=== PATIENT | female | born 1950 | race Caucasian/White ===

== ENCOUNTER 2022-08-27 07:18 | Day surgery (SDC) | payer MEDICARE, BC, SELFPAY ==
[2022-08-27] MEDS: TETRACAINE 0.5% OPHTH 1 DROP EYE-RIGHT ×2 (07:30→07:35)
[2022-08-27] MEDS: KETOROLAC OPHTH 0.5% 1 DROP EYE-RIGHT ×2 (07:30→07:35)
[2022-08-27 07:44] VITALS: BMI 37.9
[2022-08-27] MEDS: SODIUM CHLORIDE 0.9 % (FLUSH) 10 ML SYRINGE IVF (07:45)
[2022-08-27 07:48] VITALS: BP 134/78; PULSE 70; RESP 16; TEMP 36.9; O2SAT 95
--- NOTE | 2022-08-27 07:53 | SUR.PREOP ---
HOME COVID NEGATIVE
[2022-08-27] MEDS: TETRACAINE 0.5% OPHTH 2 DROP EYE-RIGHT (08:53)
[2022-08-27] MEDS: BALANCED SALT IRRIG SOLN 15 ML EYE-RIGHT (08:59)
--- NOTE | 2022-08-27 09:25 | W.ANESCHARGE ---
Anesthesia Charges Start Date/Time Anesthesia Start Date: 08/27/22 Anesthesia Start Time: 08:50 Stop Date/Time Anesthesia Stop Date: 08/27/22 Anesthesia Stop Time: 09:25 Summary Extremes of Age - Over 70 or under 1: MDA
--- NOTE | 2022-08-27 09:26 | W.ANESCHARGE ---
Anesthesia Charges Start Date/Time Anesthesia Start Date: 08/27/22 Anesthesia Start Time: 08:50 Stop Date/Time Anesthesia Stop Date: 08/27/22 Anesthesia Stop Time: 09:25
[2022-08-27 09:29] VITALS: BP 134/73; PULSE 74; RESP 16; TEMP 37.1; O2SAT 96
--- NOTE | 2022-08-27 09:29 | P.OPTPRC_ITS ---
Procedure Note Date of procedure: 08/27/22 Will [facility] bill your pro fee for this procedure?: Yes Procedure Description: SURGEON: Aide Sales MD PREOPERATIVE DIAGNOSIS: Nuclear sclerotic cataract, right eye. POSTOPERATIVE DIAGNOSIS: Nuclear sclerotic cataract, right eye. NAME OF OPERATION: Phacoemulsification of cataract with posterior chamber intraocular lens implantation in the right eye. ANESTHESIA: Topical. ESTIMATED BLOOD LOSS: Less than 2 cc. COMPLICATIONS: None. PATHOLOGY SPECIMEN: None. INDICATIONS: See consult note for details. The risks, benefits and alternatives of the procedure were explained to the patient, who elected to proceed and s igned informed consent to do so. PROCEDURE: The patient was brought to the pre-holding area where the right eye was identified as the operative eye. I placed my initials above this eye. The patient received eye drops consisting of 0.5% tetracaine, 1% tropicamide, 10% phenylephrine, and 0.5% ketorolac. The patient was then brought to the operating room where the right eye was again identified as the operative eye. The eye was prepped with Betadine and draped in the usual sterile ophthalmic fashion. A #15 super-sharp blade was used to create a paracentesis site. 1% non-preserved intracameral lidocaine was injected into the anterior chamber. Endocoat was injected into the anterior chamber. A 2.4 mm keratome was used to create a three-plane self-sealing incision 1 mm anterior to the temporal limbus. A cystotome was used to create an anterior capsular leaflet. The Utrata forceps were used to extend this to form a continuous curvilinear capsulorrhexis. Hydrodissection was performed. The cataract was removed with phacoemulsification using the ecwztu-yoo-ofndlnl technique. The irrigation and aspiration tip was used to remove the remaining cortex. Healon was injected into the capsular bag. An NATAN ZCB00 intraocular lens of 19.0 diopters was injected into the capsular bag. The irrigation and aspiration tip was used to remove the remaining viscoelastic. Balanced salt solution on a cannula was used to hydrate the wound, and the wound was found to be watertight. The pupil was noted to be round. DISPOSITION: The patient was taken to the recovery room and discharged to home in stable condition. The patient was instructed to call me or go to the emergency department with any sudden change, including dramatic loss of vision, severe pain in the eye or eyebrow region, nausea, or vomiting. The patient will follow up in the clinic tomorrow morning.
== END 2022-08-27 09:43 | disposition home or self-care (01) ==
LOC: OR 07:21
PROVIDERS: PCP Family Medicine; Visit Provider Ophthalmology
PROC: (CPT 66984; principal; 2022-08-27 07:30)
DX: H25.11 Age-related nuclear cataract, right eye (principal)
CPT/HCPCS: 66984; 00142; 99100; A9270; J2250; J3010; V2632

== ENCOUNTER 2022-09-10 07:29 | Day surgery (SDC) | payer MEDICARE, BC, SELFPAY ==
[2022-09-10] MEDS: TETRACAINE 0.5% OPHTH 1 DROP EYE-LEFT ×2 (07:42→07:46)
[2022-09-10] MEDS: KETOROLAC OPHTH 0.5% 1 DROP EYE-LEFT ×2 (07:45→07:49)
[2022-09-10] MEDS: SODIUM CHLORIDE 0.9 % (FLUSH) 10 ML SYRINGE IVF (07:45)
[2022-09-10 07:52] VITALS: BP 146/70; PULSE 76; RESP 18; TEMP 36.6; O2SAT 94; BMI 37.9
--- NOTE | 2022-09-10 07:57 | SUR.PREOP ---
The eye drops brought by the patient (Ketorolac and Prednisolone) are examined and I have determined they are labeled by the patient's pharmacy for this patient as prescribed by the surgeon. The bottles are intact, recently obtained and appear to be correct.
--- NOTE | 2022-09-10 08:08 | W.ANESCHARGE ---
Anesthesia Charges Start Date/Time Anesthesia Start Date: 09/10/22 Anesthesia Start Time: 07:49 Stop Date/Time Anesthesia Stop Date: 09/10/22 Anesthesia Stop Time: 08:23 Summary Extremes of Age - Over 70 or under 1: MDA
[2022-09-10] MEDS: TETRACAINE 0.5% OPHTH 2 DROP EYE-LEFT (08:34)
[2022-09-10] MEDS: BALANCED SALT IRRIG SOLN 15 ML EYE-LEFT (08:39)
[2022-09-10 09:00] VITALS: BP 159/88; PULSE 71; RESP 18; TEMP 36.9; O2SAT 94
--- NOTE | 2022-09-10 09:03 | W.ANESCHARGE ---
Anesthesia Charges Start Date/Time Anesthesia Start Date: 09/10/22 Anesthesia Start Time: 07:49 Stop Date/Time Anesthesia Stop Date: 09/10/22 Anesthesia Stop Time: 08:23
--- NOTE | 2022-09-10 09:46 | P.OPTPRC_ITS ---
Procedure Note Date of procedure: 09/10/22 Will [facility] bill your pro fee for this procedure?: Yes Procedure Description: SURGEON: Aide Sales MD PREOPERATIVE DIAGNOSIS: Nuclear sclerotic cataract, left eye. POSTOPERATIVE DIAGNOSIS: Nuclear sclerotic cataract, left eye. NAME OF OPERATION: Phacoemulsification of cataract with posterior chamber intraocular lens implantation in the left eye. ANESTHESIA: Topical. ESTIMATED BLOOD LOSS: Less than 2 cc. COMPLICATIONS: None. PATHOLOGY SPECIMEN: None. INDICATIONS: See consult note for details. The risks, benefits and alternatives of the procedure were explained to the patient, who elected to proceed and sign ed informed consent to do so. PROCEDURE: The patient was brought to the pre-holding area where the left eye was identified as the operative eye. I placed my initials above this eye. The patient received eye drops consisting of 0.5% tetracaine, 1% tropicamide, 10% phenylephrine, and 0.5% ketorolac. The patient was then brought to the operating room where the left eye was again identified as the operative eye. The eye was prepped with Betadine and draped in the usual sterile ophthalmic fashion. A #15 super-sharp blade was used to create a paracentesis site. 1% non-preserved intracameral lidocaine was injected into the anterior chamber. Endocoat was injected into the anterior chamber. A 2.4 mm keratome was used to create a three-plane self-sealing incision 1 mm anterior to the temporal limbus. A cystotome was used to create an anterior capsular leaflet. The Utrata forceps were used to extend this to form a continuous curvilinear capsulorrhexis. Hydrodissection was performed. The cataract was removed with phacoemulsification using the qqjwul-aeo-imlgqic technique. The irrigation and aspiration tip was used to remove the remaining cortex. Healon was injected into the capsular bag. An NATAN ZCB00 intraocular lens of 21.5 diopters was injected into the capsular bag. The irrigation and aspiration tip was used to remove the remaining viscoelastic. Balanced salt solution on a cannula was used to hydrate the wound, and the wound was found to be watertight. The pupil was noted to be round. DISPOSITION: The patient was taken to the recovery room and discharged to home in stable condition. The patient was instructed to call me or go to the emergency department with any sudden change, including dramatic loss of vision, severe pain in the eye or eyebrow region, nausea, or vomiting. The patient will follow up in the clinic tomorrow morning.
== END 2022-09-10 09:40 | disposition home or self-care (01) ==
PROVIDERS: PCP Family Medicine; Visit Provider Ophthalmology
PROC: (CPT 66984; principal; 2022-09-10 07:30)
DX: H25.12 Age-related nuclear cataract, left eye (principal)
CPT/HCPCS: 66984; 00142; 99100; A9270; J2250; J3010; V2632

== ENCOUNTER 2022-10-17 10:11 | Outpatient (CLI) | payer MEDICARE, BC, SELFPAY ==
--- NOTE | 2022-10-17 10:15 | MR_ITS ---
[facility] [address] [facility] [address] Phone:?[phone] Fax:?[phone] Referring Physician Information: Dre Sales M.D. [address] [place] [id number] Phone:?[phone] Fax:?[phone] Patient:Julio Hutchins D.O.B:?1950 Sex:?Female Phone:?[phone] [facility] MRN:?[id number] Exam Date:?10/17/2022 EXAM: MRI of the LEFT KNEE, without contrast CLINICAL INFORMATION: Female, 71 years old, with left knee pain. INDICATION: Evaluate for lateral parameniscal cyst. PRIOR SURGERY: None reported. PLAIN FILMS: Knee radiographs dated 09/24/2022. COMPARISONS: No prior MRIs available. TECHNICAL INFORMATION: Using a 1.5T MR scanner and a localizing surface coil: sagittals: PD, PDFS coronals: PD, STIR axials: PD, T2FS SEDATION: None CONTRAST: None FINDINGS: Knee joint: Effusion: Trace-small left knee effusion. Popliteal cyst: None. Loose bodies: None. Subcutaneous and extra-articular soft tissues: Unremarkable. Ligaments: ACL: Intact ACL anteromedial and posterolateral bundles, without sprain or tear. PCL: Intact PCL, without acute or chronic injury. MCL: Mild thickening involving the proximal one third of the superficial MCL, without MCL tear (coronal PD series 7 image 16). LCL: Intact LCL, without injury. Posterolateral corner: Mild popliteus tendinopathy, without tear. Biceps femoris, iliotibial band, popliteofibular ligament and lateral gastrocnemius are intact. Posteromedial corner: No posteromedial corner soft tissue injury. Semimembranosus, pes anserine tendons and posterior oblique ligament are without injury, tendinopathy or bursitis. Extensor mechanism: Patellar tendon: Intact, without tendinopathy. Quadriceps tendon: Intact, without tendinopathy. Retinacula: Medial and lateral retinacula are intact. Fat pads: Unremarkable infrapatellar Hoffa's, quadriceps and prefemoral fat pads. Medial compartment: Medial meniscus: No articular surface, meniscosynovial junction or root tear. No displacement, extrusion or parameniscal cyst. Medial femoral condyle: No chondromalacia or osteochondral abnormality. Medial tibial plateau: No chondromalacia or osteochondral abnormality. Lateral compartment: Lateral meniscus: Apical free edge and undersurface fraying/subtle tearing of the posterior horn over a length of 1.1 cm (sagittal PDFS series 6 images 7-10). No parameniscal cyst or meniscal extrusion. Lateral femoral condyle & tibial plateau: Broad-based grade II chondromalacia of the lateral compartment, with minimal marginal osteophytosis. Patellofemoral joint: Patella: Generalized grade III chondromalacia of the patella, with moderate reactive osseous changes (sagittal PDFS series 6 image 15). Trochlea: Generalized grade II chondromalacia of the trochlea. Proximal tibiofibular joint: Unremarkable, without evidence of ligament sprain injury, joint effusion or adjacent marrow edema. Bones: No stress/occult fractures or other marrow edema/pathology. IMPRESSION: 1. Moderate osteoarthritis of the patellofemoral compartment, which affects the patella to a greater extent than the trochlea. 2. Apical free edge and undersurface fraying/subtle tearing of the lateral meniscal posterior horn measuring 1.1 cm. No evidence of more well-defined medial or lateral meniscal tearing. No parameniscal cyst identified. 3. Chronic sequela of a low-grade proximal MCL sprain, without tear. 4. Trace-small knee joint effusion. No popliteal (Barraza's) cyst. 5. Minimal osteoarthritis of the lateral compartment. 6. No ACL, PCL, or LCL sprain/tear. BC Electronically signed on 10/17/2022 1:44:00 PM by Nils Stover M.D. Addendum A EXAM: MRI of the?RIGHT?KNEE, without contrast. - AMENDED REPORT (See underlined below in Section: EXAM, CLINICAL INFORMATION, AND FINDINGS) CLINICAL INFORMATION: Female, 71 years old, with?right?knee pain. INDICATION: Evaluate for lateral parameniscal cyst. PRIOR SURGERY: None reported. PLAIN FILMS: Knee radiographs dated 09/24/2022. COMPARISONS: No prior MRIs available. TECHNICAL INFORMATION: Using a 1.5T MR scanner and a localizing surface coil: sagittals: PD, PDFS coronals: PD, STIR axials: PD, T2FS SEDATION: None CONTRAST: None FINDINGS: Knee joint: Effusion: Trace-small?right?knee effusion. Popliteal cyst: None. Loose bodies: None. Subcutaneous and extra-articular soft tissues: Unremarkable. Ligaments: ACL: Intact ACL anteromedial and posterolateral bundles, without sprain or tear. PCL: Intact PCL, without acute or chronic injury. MCL: Mild thickening involving the proximal one third of the superficial MCL, without MCL tear (coronal PD series 7 image 16). LCL: Intact LCL, without injury. Posterolateral corner: Mild popliteus tendinopathy, without tear. Biceps femoris, iliotibial band, popliteofibular ligament and lateral gastrocnemius are intact. Posteromedial corner: No posteromedial corner soft tissue injury. Semimembranosus, pes anserine tendons and posterior oblique ligament are without injury, tendinopathy or bursitis. Extensor mechanism: Patellar tendon: Intact, without tendinopathy. Quadriceps tendon: Intact, without tendinopathy. Retinacula: Medial and lateral retinacula are intact. Fat pads: Unremarkable infrapatellar Hoffa's, quadriceps and prefemoral fat pads. Medial compartment: Medial meniscus: No articular surface, meniscosynovial junction or root tear. No displacement, extrusion or parameniscal cyst. Medial femoral condyle: No chondromalacia or osteochondral abnormality. Medial tibial plateau: No chondromalacia or osteochondral abnormality. Lateral compartment: Lateral meniscus: Apical free edge and undersurface fraying/subtle tearing of the posterior horn over a length of 1.1 cm (sagittal PDFS series 6 images 7-10). No parameniscal cyst or meniscal extrusion. Lateral femoral condyle & tibial plateau: Broad-based grade II chondromalacia of the lateral compartment, with minimal marginal osteophytosis. Patellofemoral joint: Patella: Generalized grade III chondromalacia of the patella, with moderate reactive osseous changes (sagittal PDFS series 6 image 15). Trochlea: Generalized grade II chondromalacia of the trochlea. Proximal tibiofibular joint: Unremarkable, without evidence of ligament sprain injury, joint effusion or adjacent marrow edema. Bones: No stress/occult fractures or other marrow edema/pathology. IMPRESSION: 1. Moderate osteoarthritis of the patellofemoral compartment, which affects the patella to a greater extent than the trochlea. 2. Apical free edge and undersurface fraying/subtle tearing of the lateral meniscal posterior horn measuring 1.1 cm. No evidence of more well-defined medial or lateral meniscal tearing. No parameniscal cyst identified. 3. Chronic sequela of a low-grade proximal MCL sprain, without tear. 4. Trace-small knee joint effusion. No popliteal (Barraza's) cyst. 5. Minimal osteoarthritis of the lateral compartment. 6. No ACL, PCL, or LCL sprain/tear. BC Electronically signed on 10/28/2022 2:55:00 PM by Nils Stover M.D.
== END 2022-10-17 10:12 | disposition home or self-care (01) ==
LOC: MRI 10:13
PROVIDERS: PCP Family Medicine; Visit Provider Orthopaedic Surgery
DX: M25.561 Pain in right knee (principal); S83.281A Other tear of lateral meniscus, current injury, right knee, initial encounter; S83.411A Sprain of medial collateral ligament of right knee, initial encounter; S83.241A Other tear of medial meniscus, current injury, right knee, initial encounter; M17.11 Unilateral primary osteoarthritis, right knee; M25.461 Effusion, right knee; S83.111A Anterior subluxation of proximal end of tibia, right knee, initial encounter
CPT/HCPCS: 73721

== ENCOUNTER 2024-08-22 13:45 | Outpatient (RCR) | payer MEDICARE, BC, SELFPAY | END 2024-10-10 12:43 | disposition home or self-care (01) | PROVIDERS: PCP Family Medicine; Visit Provider Family Medicine | DX: R26.81 Unsteadiness on feet (principal); Z51.89 Encounter for other specified aftercare | CPT/HCPCS: 97112; 97161 ==

== ENCOUNTER 2024-09-29 14:56 | Outpatient (CLI) | payer MEDICARE, BC, SELFPAY | END 2024-09-29 14:57 | disposition home or self-care (01) | LOC: NFLDREF 10-05 18:24 | PROVIDERS: PCP Family Medicine; Referring Provider Family Medicine; Visit Provider Obstetrics & Gynecology | DX: N81.2 Incomplete uterovaginal prolapse (principal); R82.90 Unspecified abnormal findings in urine | CPT/HCPCS: 87086 ==

== ENCOUNTER 2024-11-12 14:32 | Outpatient (CLI) | payer MEDICARE, BC, SELFPAY | END 2024-11-12 14:33 | disposition home or self-care (01) | PROVIDERS: PCP Family Medicine; Referring Provider Family Medicine; Visit Provider Physician Assistant Surgical | DX: R30.0 Dysuria (principal); N39.0 Urinary tract infection, site not specified; R35.0 Frequency of micturition | CPT/HCPCS: 87086 ==

== ENCOUNTER 2024-11-26 13:24 | Outpatient (CLI) | payer MEDICARE, BC, SELFPAY | END 2024-11-26 13:25 | disposition home or self-care (01) | LOC: NFLDREF 11-27 06:23 | PROVIDERS: PCP Family Medicine; Referring Provider Family Medicine; Visit Provider Physician Assistant | DX: N39.0 Urinary tract infection, site not specified (principal) | CPT/HCPCS: 87086 ==

== ENCOUNTER 2024-12-07 11:28 | Outpatient (CLI) | payer MEDICARE, BC, SELFPAY | END 2024-12-07 11:29 | disposition home or self-care (01) | PROVIDERS: PCP Family Medicine; Visit Provider Obstetrics & Gynecology | DX: R82.90 Unspecified abnormal findings in urine (principal) | CPT/HCPCS: 87086 ==